=== PATIENT | female | born 2000 | race Caucasian/White ===

== ENCOUNTER 2022-08-18 18:42 | Emergency (ER) | payer BC, SELFPAY ==
[2022-08-18 18:43] VITALS: BP 115/58; PULSE 77; RESP 14; TEMP 36.1; O2SAT 99; BMI 20.1
--- NOTE | 2022-08-18 18:51 | ED.VIS.LOWEX ---
HPI <CRYSTAL Booth - Last Filed: 08/18/22 19:20> History of Present Illness Chief Complaint: Lower Extremity Injury Narrative Narrative: Patient was just at her soccer game and was running when she rolled her left ankle. She could take a few steps but now cannot bear weight. She took ibuprofen and Tylenol prior to arrival. PFSH <CRYSTAL Booth - Last Filed: 08/18/22 19:20> PFSH Medical History no medical history Allergy/AdvReac Type Severity Reaction Status Date / Time No Known Allergies Allergy Verified 08/18/22 18:43 Surgical History no surgical history Social History Smoking Status: Never smoker ROS <CRYSTAL Booth - Last Filed: 08/18/22 19:20> ROS ED ROS Narrative Neuro: Negative for motor/sensory dysfunction. Skin: Negative for wound. Musc: Positive for left ankle pain, swelling, trauma. EXAM <CRYSTAL Booth - Last Filed: 08/18/22 19:20> Physical Exam Narrative Exam Narrative: CONST: Patient sitting in no acute distress. EYES: Normal inspection. NECK: Normal inspection. RESP: No respiratory distress, CTAB. CVS: Regular rate and rhythm, no murmur, no gallop. SKIN: Color normal, no rash, warm, dry, intact. EXTREMITIES: Soft tissue swelling and tenderness over left lateral malleolus and TTP over the ATFL region. No tenderness of the knee lowry or foot. Limited ankle range of motion secondary to pain and swelling. Normal sensation, 2+ DP pulse. Achilles intact. NEURO: Oriented x4. PSYCH: Normal affect. Const Vital Signs: 08/18/22 18:43 Temperature 97 F L Temperature Source Temporal Pulse Rate 77 Respiratory Rate 14 Blood Pressure 115/58 L Blood Pressure Mean 77 Pulse Ox 99 Oxygen Delivery Method Room Air <Dr. Primitivo Butts, DO - Last Filed: 08/18/22 19:27> Physical Exam Const Vital Signs: 08/18/22 18:43 Temperature 97 F L Temperature Source Temporal Pulse Rate 77 Respiratory Rate 14 Blood Pressure 115/58 L Blood Pressure Mean 77 Pulse Ox 99 Oxygen Delivery Method Room Air MDM <CRYSTAL Booth - Last Filed: 08/18/22 19:20> MDM MDM Narrative Medical decision making narrative: History gathered from: Patient and mom Patient rolled her left ankle in a soccer game. She has pain and swelling on the lateral ankle and tenderness of the ATFL. She is also tender on the medial aspect but it's not swollen. Neurovascularly intact. X-ray shows tiny avulsion fracture of the inferior medial malleolus. Patient was given an Aircast, crutches, we discussed RICE protocol and taking [id number] analgesia. I provided an orthopedic referral and she was discharged in stable condition. Differential: Ankle sprain versus fracture, do not suspect Achilles injury Radiography Diagnostic Testing: Clinical Impression(s) from Imaging Studies Ankle X-Ray 08/18/22 18:55 IMPRESSION: Acute avulsion fracture the inferior aspect of the medial malleolus the tibia. Lateral soft tissue swelling consistent with ligamentous injury. Electronically Signed: Spencer Guerrero MD at 19:05 EDT Reading Location ID and State: [employer] / [employer] , Service support , <Dr. Primitivo Butts, DO - Last Filed: 08/18/22 19:27> MDM Radiography Diagnostic Testing: Clinical Impression(s) from Imaging Studies Ankle X-Ray 08/18/22 18:55 IMPRESSION: Acute avulsion fracture the inferior aspect of the medial malleolus the tibia. Lateral soft tissue swelling consistent with ligamentous injury. Electronically Signed: Spencer Guerrero MD at 19:05 EDT Reading Location ID and State: [id number] / [employer] , Service support , Treatment and Re-Evaluation Narrative: I have personally performed a face to face assessment of the patient and have reviewed the WILSON Note. I performed a substantive portion of the visit including all aspects of the following. My keith findings include: History: Patient presents with left ankle injury that occurred while playing soccer today. Patient states she rolled her ankle. Patient states she has pain over the lateral aspect of the left ankle. Patient denies any pain over the proximal fibula. Patient states the pain does radiate into her foot. Patient admits to some mild pain over the fifth metatarsal. Patient denies any paresthesias or weakness. Patient denies any other injuries. Exam: Vital signs are stable. Patient is afebrile. Patient is in no acute distress. Musculoskeletal exam reveals tenderness and edema over the lateral aspect of the left ankle. There is no bony crepitance or step-off. There is no obvious deformity noted. There is no tenderness medially. Range of motion was limited in all motions of the left ankle secondary to pain. There is no tenderness over the proximal fibula. There is no tenderness over the fifth metatarsal. Pedal pulses are equal bilaterally. Sensation was intact to light touch in all digits. Capillary refill was less than 2 seconds in all digits. Medical Decision Making: Differential diagnosis include sprain and fracture. X-rays of the left ankle will be obtained to assess for fracture. X-rays of the left ankle were obtained. There are 2 views. On my independent interpretation, there is an avulsion fracture off the tip of the medial malleolus. There is soft tissue swelling laterally. Radiologist also interpreted the x-rays and agrees. Patient was given an Aircast. Patient was given crutches. Patient was instructed to ice and elevate the left ankle. Patient was instructed to take Tylenol and ibuprofen as needed for pain. I do not feel the patient requires prescription analgesics at this time. Patient and mother understand and are agreeable with the plan. All questions were answered. Discharge Plan Triage Chief Complaint: Lower Extremity Injury ED Midlevel Provider: Gemini Phoenix ED Provider: Primitivo Butts Dx/Rx/DC Orders Clinical Impression: Closed avulsion fracture of left ankle Instructions: ED Ankle Fracture Referrals: Bj Nix DO [Med Staff - Active Staff] - Activity Restrictions/Additional Instructions: X-ray shows acute avulsion fracture of the medial malleolus. There is a tiny chip fracture off the inside of your ankle. This will heal without surgical intervention. You also likely sprained the ligaments in your ankle. Rest, ice, elevate, use the Aircast and crutches. Alternate Tylenol and Motrin every 3 hours as needed. Please follow-up with the orthopedic doctor. Disposition Disposition: Home, Self Care
--- NOTE | 2022-08-18 18:55 | RAD_ITS ---
STUDY: X-RAY - LEFT ANKLE REASON FOR EXAM: Female, 22 years old. pain TECHNIQUE: 3 view(s) of the ankle. COMPARISON: None. FINDINGS: Normal visualized distal tibia and fibula. Avulsion fracture the inferior aspect of the medial malleolus and tibia. Normal tibiotalar articulation and ankle mortise. Normal visualized talus and calcaneus. The visualized subtalar, talonavicular, calcaneocuboid and tarsal articulations are normal. Lateral soft tissue swelling consistent with ligamentous injury. RAD/Ankle min 3 Views IMPRESSION: Acute avulsion fracture the inferior aspect of the medial malleolus the tibia. Lateral soft tissue swelling consistent with ligamentous injury. Electronically Signed: Spencer Guerrero MD at 19:05 EDT ,
[2022-08-18 19:36] VITALS: BP 113/64; PULSE 65; RESP 18; O2SAT 100
== END 2022-08-18 19:37 | disposition home or self-care (01) ==
PROVIDERS: Emergency Provider Emergency Medicine; Visit Provider Emergency Medicine
DX: S82.892A Other fracture of left lower leg, initial encounter for closed fracture (principal); Y92.322 Soccer field as the place of occurrence of the external cause; Y93.02 Activity, running
CPT/HCPCS: 73610; 99284; A4216

== ENCOUNTER 2023-12-22 20:43 | Emergency (ER) | payer BC, SELFPAY ==
[2023-12-22 20:43] VITALS: BP 133/98; PULSE 104; RESP 16; TEMP 36.8; O2SAT 100; BMI 19.8
--- NOTE | 2023-12-22 21:33 | EX.ED.VIS.UR ---
HPI HPI - URI History of Present Illness Chief Complaint: Ear Problem Detail of Chief Complaint: Left ear pain Informant: patient Narrative Narrative: Patient presents with left ear pain that started initially 2 weeks ago and she went to primary care physician back home who told her she had some fluid behind her eardrum and really did not prescribe anything. She said some mild discomfort since then and some itching. Yesterday she used a Q-tip in her left ear and noticed some pus and some blood. Patient then went to urgent care today and was told she had swimmer's ear and was started on antibiotic drops 4 times a day as well as oral amoxicillin. Patient continues to have severe pain. She denies fevers or chills or sweats. She denies any trauma to her ear. ROS ROS ED Review of Systems ROS Unobtainable: other Constitutional Constitutional ED: Reports lethargy; Denies chills, fever(s), sweats or weight loss Eyes Eyes: Denies blurry vision, change in vision or diplopia ENT ENT ED: Reports ear pain; Denies rhinorrhea or sore throat Cardiovascular Cardiovascular: Denies chest pain, orthopnea or racing heartbeat Respiratory/Chest Respiratory/Chest: Denies cough, dyspnea, dyspnea on exertion, orthopnea or sputum Gastrointestinal Gastrointestinal: Denies abdominal pain, diarrhea, nausea or vomiting Genitourinary Genitourinary ED: Denies dysuria, hematuria or urinary frequency Musculoskeletal Musculoskeletal: Denies arthralgias, back pain, myalgias or neck pain Integumentary Denies abscess, Abrasions or rash Neurologic Neurologic: Denies headache(s) or weakness Psychiatric Psychiatric: Denies anxiety, depression or suicidal thoughts Endocrine Endocrinology: Denies polydipsia, polyphagia or polyuria Hematologic/Lymphatic Hematologic/Lymphatic: Denies easy bleeding, easy bruising or lymphadenopathy Allergic/Immunologic Allergic/Immunologic ED: Denies mouth swelling, tongue swelling or urticaria PFSH PFSH Medical History no medical history Home Medications ?Medication ?Instructions ?Recorded ?Last Taken ?Type hydrocodone-acetaminophen 5-325mg 1 tab PO Q4H PRN PRN Pain 2 days 12/22/23 Unknown Rx 5mg-325mg #12 TABLETS Allergy/AdvReac Type Severity Reaction Status Date / Time No Known Allergies Allergy Verified 12/22/23 20:45 Surgical History no surgical history Social History Smoking Status: Never smoker EXAM Physical Exam Const Vital Signs: 12/22/23 20:43 12/22/23 22:00 Temperature 98.2 F 98.1 F Temperature Source Temporal Pulse Rate 104 H 99 Respiratory Rate 16 16 Blood Pressure 133/98 H 141/88 H Blood Pressure Mean 109 105 Pulse Ox 100 100 Oxygen Delivery Method Room Air Positive well nourished and well developed General Appearance ED: well developed and NAD HEENT Reports moist mucous membranes HEENT Narrative: Left ear-patient does have pain with traction on the left pinna. She does have edema of the ear canal on the left. I am only able to visualize the outer third of the tympanic membrane which does not appear erythematous. She does not have significant purulent drainage within the ear canal. There is no blood within the ear canal. No tenderness over the mastoid. normocephalic and atraumatic; Negative for trauma or tenderness Eyes PERRL and EOMs intact bilaterally General Eye ED: Negative for pale conjunctiva or scleral icterus Neck no lymphadenopathy, supple and no JVD General: Negative for tenderness Chest Wall inspection of chest normal and palpation of chest normal Chest: Negative for tenderness Resp normal respiratory effort and clear to auscultation bilaterally Effort and Inspection: Negative for respiratory distress or pain with movement Auscultation: Negative for rhonchi, wheezes or diminished lung sounds Cardio regular rate, regular rhythm, S1 normal heart sound, S2 normal heart sound and no murmurs Peripheral Pulses: pulses 2+ throughout GI normal to inspection, nondistended, normoactive bowel sounds, soft to palpation, non-tender, non-distended and no masses Back/Spine no CVA tenderness and no thoracic nor lumbar tenderness Extremity normal to inspection General Extremety ED: Negative for edema General Extremity: Negative for edema Neuro oriented x3, CN's II-XII intact bilaterally, no sensory deficits noted and gait normal Sensorium / Orientation: awake, alert, oriented to person, oriented to place and oriented to time Motor Exam: strength 5/5 throughout and strength abnormal Psych mental status grossly normal Skin no rashes or lesions noted and no wounds MDM MDM MDM Narrative Medical decision making narrative: Patient presents with left ear pain seen in urgent care today and diagnosed with otitis externa. Currently on antibiotic drops as well as oral. I will give her a dose of Broadus for pain. I will write her a prescription for Broadus for pain. Will refer her to ENT. This point she understands that can take the antibiotics few days to really start to work. She is advised to keep water out of her ear. Discharge Plan Triage Chief Complaint: Ear Problem ED Provider: Hieu Hickman Dx/Rx/DC Orders Clinical Impression: Left otitis externa Instructions: ED External Ear Infection (Adult) Prescriptions: New hydrocodone-acetaminophen 5-325 mg tablet 1 tab PO Q4H PRN PRN (Reason: Pain) 2 Days Qty: 12 0RF Primary Care Provider: ARABELLA JACKSON Referrals: ARABELLA JACKSON [Other] Dov Ferrari MD [Med Staff - Active Staff] - 3-5 Days Print Language: Wolof Disposition Disposition: Home, Self Care Discharge Date/Time: 12/22/23 22:01
[2023-12-22] MEDS: HYDROcodone Bitartrate/Apap 5/325 Tablet PO (21:46)
[2023-12-22 22:00] VITALS: BP 141/88; PULSE 99; RESP 16; TEMP 36.7; O2SAT 100
== END 2023-12-22 22:01 | disposition home or self-care (01) ==
PROVIDERS: Emergency Provider Emergency Medicine; Visit Provider Emergency Medicine
DX: H60.92 Unspecified otitis externa, left ear (principal)
CPT/HCPCS: 99282

== ENCOUNTER 2024-01-05 15:24 | Emergency (ER) | payer BC, OTHER, SELFPAY ==
[2024-01-05 15:24] VITALS: BP 118/57; PULSE 81; RESP 18; TEMP 36.1; O2SAT 97; BMI 19.5
--- NOTE | 2024-01-05 15:35 | RAD_ITS ---
STUDY: X-RAY - LEFT FOOT CLINICAL: Female, 23 years old. injury TECHNIQUE: 3 view(s) of the foot. COMPARISON: None. FINDINGS: Normal talus, calcaneus, and tarsal bones. Normal visualized subtalar, talonavicular, calcaneocuboid, tarsal and tarsometatarsal articulations. Normal metatarsi. Normal metatarsophalangeal joint of the great toe. Normal tibial and fibular sesamoid bones. Normal interphalangeal joint of the great toe. Normal phalanges of the great toe. Normal second through fifth metatarsophalangeal joints. Normal interphalangeal joints and phalanges of the lesser toes. The soft tissue structures are unremarkable. RAD/Foot min 3 Views IMPRESSION: Normal x-ray examination of the foot. Electronically Signed: Saud Guevara MD at 16:13 EDT ,
--- NOTE | 2024-01-05 15:35 | RAD_ITS ---
STUDY: X-RAY - LEFT ANKLE REASON FOR EXAM: Female, 23 years old. injury TECHNIQUE: 3 view(s) of the ankle. COMPARISON: August 18, 2022 FINDINGS: Normal visualized distal tibia and fibula. Normal medial and lateral malleoli. Normal tibiotalar articulation and ankle mortise. Normal visualized talus and calcaneus. The visualized subtalar, talonavicular, calcaneocuboid and tarsal articulations are normal. Small bone mouse within the tibiotalar joint likely representing old posttraumatic change. RAD/Ankle min 3 Views IMPRESSION: No acute fracture or dislocation. Electronically Signed: Saud Guevara MD at 16:16 EDT ,
--- NOTE | 2024-01-05 16:54 | ED.VIS.LOWEX ---
HPI History of Present Illness Chief Complaint: Lower Extremity Injury Informant: patient and parent Narrative Narrative: Soccer injury yesterday while playing. There was a collision in a crowd, somebody side onto her ankle and foot. She had avulsion fracture of her ankle year ago with nonsurgical treatment. No medications taken today. No paresthesias. She has crutches. Prior similar symptoms: Yes PFSH PFSH Home Medications ?Medication ?Instructions ?Recorded ?Last Taken ?Type hydrocodone-acetaminophen 5-325mg 1 tab PO Q4H PRN PRN Pain 2 days 12/22/23 Unknown Rx 5mg-325mg #12 TABLETS Allergy/AdvReac Type Severity Reaction Status Date / Time No Known Allergies Allergy Verified 01/05/24 15:24 Social History Smoking Status: Never smoker ROS ROS ED Constitutional Constitutional ED: Denies fever(s) Cardiovascular Cardiovascular: Denies chest pain Respiratory/Chest Respiratory/Chest: Denies cough Gastrointestinal Gastrointestinal: Denies abdominal pain, diarrhea, nausea or vomiting Genitourinary Genitourinary ED: Denies dysuria Musculoskeletal Musculoskeletal: Reports extremity pain; Denies back pain or neck pain Integumentary Denies rash or wounds Neurologic Neurologic: Denies paresthesias or weakness EXAM Physical Exam Const Vital Signs: 01/05/24 15:24 Temperature 97 F L Temperature Source Temporal Pulse Rate 81 Respiratory Rate 18 Blood Pressure 118/57 L Blood Pressure Mean 77 Pulse Ox 97 Oxygen Delivery Method Nasal Cannula Positive well nourished and well developed General Appearance ED: well developed and NAD HEENT Reports moist mucous membranes normocephalic and atraumatic Eyes conjunctivae normal; Negative for EOMs intact bilaterally General Eye ED: Yes normal appearance of both eyes Neck no lymphadenopathy and supple General: Negative for tenderness Chest Wall Chest: Negative for tenderness Resp normal respiratory effort and normal air movement Effort and Inspection: symmetric chest movement; Negative for respiratory distress Cardio regular rate, regular rhythm and no murmurs Peripheral Pulses: pulses 2+ throughout GI normal to inspection, nondistended, normoactive bowel sounds and non-tender Palpation: Negative for guarding or rebound tenderness present Extremity Extremity Narrative: Left lower extremity: No hip or knee tenderness. There is no malleoli or tenderness. tender across the midfoot. No proximal fifth base tenderness. No significant swelling noted. General Extremety ED: Yes tenderness; Negative for edema General Extremity: Negative for edema Neuro oriented x3 and no sensory deficits noted Sensorium / Orientation: awake and alert Skin no rashes or lesions noted and no wounds MDM MDM MDM Narrative Medical decision making narrative: Interventions / MDM: Differential diagnosis: Sprain, contusion Diagnosis considered but do not suspect: Fracture however x-ray negative. My EKG interpretation: N/A Imaging independently reviewed and interpreted by myself: 3 view left ankle: Extra ossicle noted distal to medial malleoli are. No new fractures. 3 view left foot: No fractures noted. External documents reviewed: N/A Test considered but not ordered:N/A ED course: Patient had Motrin 4 mg that she was allowed to take in the emergency department. X-ray left ankle and foot ordered further evaluation. Results pending for any acute process. Cameron wrap postop shoe provided. She will continue Motrin [id number] for the next 2 days then as needed. She will continue with crutches as needed. All questions were answered. Re-evaluation: stable Disposition discussed with patient/family/significant other: Patient and mother Case discussed with consulting clinician: N/A This note was generated with [employer] dictation software. It may contain incorrect words, spelling, and punctuation that were not noted in checking the note before signing. T Radiography Diagnostic Testing: Clinical Impression(s) from Imaging Studies Ankle X-Ray 01/05/24 15:35 IMPRESSION: No acute fracture or dislocation. Electronically Signed: Saud Guevara MD at 16:16 EDT , Foot X-Ray 01/05/24 15:35 IMPRESSION: Normal x-ray examination of the foot. Electronically Signed: Saud Guevara MD at 16:13 EDT , Discharge Plan Triage Chief Complaint: Lower Extremity Injury ED Provider: Golden Summers Dx/Rx/DC Orders Clinical Impression: Sprain of foot, left, Left ankle sprain Instructions: ED Foot Sprain, ED Ankle Sprain (Adult) Prescriptions: No Action hydrocodone-acetaminophen 5-325 mg tablet 1 tab PO Q4H PRN PRN (Reason: Pain) 2 Days Qty: 12 0RF Primary Care Provider: ARABELLA JACKSON Referrals: ARABELLA JACKSON [Other] - 1-2 Weeks Activity Restrictions/Additional Instructions: Left ankle and foot x-rays negative. Cameron wrap and postop shoe for comfort. Crutches as needed. Continue Motrin 40 mg every 6 hours for next 2 days then as needed. Follow-up with your doctor. Print Language: Kazakh Disposition Disposition: Home, Self Care Discharge Date/Time: 01/05/24 16:56
== END 2024-01-05 16:56 | disposition home or self-care (01) ==
PROVIDERS: Emergency Provider Emergency Medicine; Visit Provider Emergency Medicine
DX: S93.402A Sprain of unspecified ligament of left ankle, initial encounter (principal); Y93.66 Activity, soccer
CPT/HCPCS: 73610; 73630; 99283

== ENCOUNTER → 2024-05-25 | Outpatient (CLI) | payer BC, SELFPAY ==
[2024-05-25 16:54] LABS: Hemoglobin 12.7 g/dL (12.0-15.0); Mean Corp Hgb Conc 33.4 g/dL (32-36); Mean Corpuscular Hgb 30.3 pg (27.0-32.0); Mean Corpuscular Volume 90.7 fL (81-99); Mean Platelet Vol. 8.8 fl (6.2-12.0); Platelet Count 285 K/mm3 (150-450); RBC Distribution Width CV 11.9 % (11.6-14.6); Red Blood Count 4.19 M/mm3 (4.2-5.4); White Blood Count 5.1 K/mm3 (4.4-11.0)
[2024-05-25 17:01] LABS: Internal QC Validated? YES +Cl - CLEAR BKGD; Pregnancy, Urine Negative Negative
[2024-05-25 17:06] LABS: AST(SGOT) 16 U/L (15-37); Alanine Aminotransfer ALT/SGPT 17 U/L (13-56); Triglycerides 68 mg/dL
== END | disposition home or self-care (01) ==
LOC: PAVLAB 16:32
DX: L70.0 Acne vulgaris (principal); Z79.899 Other long term (current) drug therapy
CPT/HCPCS: 36415; 81025; 84450; 84460; 84478; 85027

== ENCOUNTER → 2024-06-24 | Outpatient (CLI) | payer BC, SELFPAY ==
[2024-06-24 13:53] LABS: Hematocrit 39.2 % (37-47); Hemoglobin 13.4 g/dL (12.0-15.0); Mean Corp Hgb Conc 34.2 g/dL (32-36); Mean Corpuscular Hgb 31.2 pg (27.0-32.0); Mean Corpuscular Volume 91.4 fL (81-99); Mean Platelet Vol. 8.9 fl (6.2-12.0); Platelet Count 287 K/mm3 (150-450); RBC Distribution Width CV 12.3 % (11.6-14.6); RBC Distribution Width SD 40.6 fl (35.1-43.9); Red Blood Count 4.29 M/mm3 (4.2-5.4); White Blood Count 5.8 K/mm3 (4.4-11.0)
[2024-06-24 14:09] LABS: AST(SGOT) 25 U/L (15-37); Alanine Aminotransfer ALT/SGPT 24 U/L (13-56); Triglycerides 130 mg/dL
== END | disposition home or self-care (01) ==
LOC: PAVLAB 13:29
DX: L70.0 Acne vulgaris (principal)
CPT/HCPCS: 36415; 84450; 84460; 84478; 85027